=== PATIENT | male | born 1980 | race Caucasian/White ===

== ENCOUNTER 2020-05-14 11:35 | Emergency (ER) | payer OTHER ==
[~2020-05-14] VITALS: Ht 185.4 cm; Wt 99.8 kg
[2020-05-14] MEDS ORDERED: PRED20 PO (12:09)
[2020-05-14] MEDS ORDERED: CEPH500 PO (12:09)
== END 2020-05-14 12:20 | disposition home or self-care (01) ==
LOC: ER 11:35
DX: T63.441A Toxic effect of venom of bees, accidental (unintentional), initial encounter (principal); F17.200 Nicotine dependence, unspecified, uncomplicated; Z91.09 Other allergy status, other than to drugs and biological substances
CPT/HCPCS: 99282